=== PATIENT | male | born 1945 | race Caucasian/White ===

== ENCOUNTER 2022-10-10 13:52 | Outpatient (CLI) | payer MEDICARE, BC | END 2022-10-10 13:53 | disposition home or self-care (01) | LOC: TBSIIMAG 13:52 | PROVIDERS: ATTEND Surgery | DX: M50.30 Other cervical disc degeneration, unspecified cervical region (principal); M47.812 Spondylosis without myelopathy or radiculopathy, cervical region | CPT/HCPCS: 72050; 72141 ==

== ENCOUNTER 2022-12-12 12:22 | Outpatient (CLI) | payer MEDICARE, BC | END 2022-12-12 12:23 | disposition home or self-care (01) | LOC: TBSIIMAG 12:22 | PROVIDERS: ATTEND Surgery | DX: M47.24 Other spondylosis with radiculopathy, thoracic region (principal) | CPT/HCPCS: 72146 ==

== ENCOUNTER 2023-04-09 05:39 | Inpatient (IN) | payer MEDICARE, BC ==
[2023-04-06 16:30] VITALS: BMI 29.2
[2023-04-06 17:46] LABS: Hemoglobin 15.6 g/dL (13.5-17.5); Mean Corpuscular HGB CONC 31.8 g/dL (32.0-36.0); Mean Corpuscular Hemoglobin 30.2 pg (27.0-33.0); Mean Platelet Volume 10.3 fl (7.4-10.4); Platelet Count 145 10x3/uL (150-450); RBC Distribution Width 12.8 % (11.5-14.5); Red Blood Cell (RBC) Count 5.16 10x6/uL (4.32-5.72); White Blood Cell (WBC) Count 7.1 10x3/uL (3.5-10.5)
[2023-04-06 17:56] LABS: PTT 26.2 sec (22.0-33.0); Prothrombin Time 10.4 sec (9.5-12.1)
[2023-04-06 17:59] LABS: Anion Gap 11 mmol/L (10-20); BUN (Urea Nitrogen) 16 mg/dL (8.4-25.7); Calc. Creatinine Clearance 0 mL/min (70-130); Calcium 9.1 mg/dL (7.8-10.44); Carbon Dioxide 31 mmol/L (23-31); Chloride 102 mmol/L (98-107); Estimated GFR 90; Glucose 84 mg/dL (83-110); Potassium 4.5 mmol/L (3.5-5.1); Sodium 139 mmol/L (136-145)
[2023-04-09] MEDS ORDERED: Thrombin 5000 UNITS/5 ML VIAL ONE (06:33)
[2023-04-09] MEDS ORDERED: Vancomycin 1 GM VIAL ONE (06:33)
[2023-04-09] MEDS ORDERED: fentaNYL 50 mcg/mL 1 mL Vial ONE ×5 (07:05→11:35)
[2023-04-09] MEDS ORDERED: Famotidine/PF 20 mg/2ml Vial ONE (07:05)
[2023-04-09] MEDS ORDERED: Vasopressin 20 UNITS/ML VIAL ONE (07:05)
[2023-04-09] MEDS ORDERED: SUGAMMADEX SODIUM 200 MG/2 ML VIAL ONE (07:05)
[2023-04-09] MEDS ORDERED: Sodium Chloride 0.9% 100 ML ONE (07:18)
[2023-04-09] MEDS ORDERED: CEFAZOLIN 2 GM VIAL ONE (07:18)
[2023-04-09] MEDS ORDERED: Rocuronium Bromide 10 MG/ML (10ML VIAL) ONE (07:34)
[2023-04-09] MEDS ORDERED: PHENYLEPHRINE-NS 100 MCG/ML 10 ML SYRINGE ONE (07:34)
[2023-04-09] MEDS ORDERED: Dexamethasone 20 MG/5 ML VIAL ONE (07:34)
[2023-04-09] MEDS ORDERED: Ondansetron PF 4 MG/2 ML Vial ONE (07:34)
[2023-04-09] MEDS ORDERED: ePHEDrine Sulfate 50 MG/10 ML VIAL ONE (07:34)
[2023-04-09] MEDS ORDERED: Ketorolac Tromethamine 30 MG/ML VIAL ONE (07:34)
[2023-04-09] MEDS ORDERED: PROPOFOL 200 MG/20 ML VIAL ONE (07:34)
[2023-04-09] MEDS ORDERED: Lidocaine 1% PF 5 ML VIAL ONE (07:34)
[2023-04-09] MEDS ORDERED: Vancomycin 500 MG VIAL (PEDI) ONE (10:20)
[2023-04-09] MEDS ORDERED: Promethazine HCl 25 MG/ML VIAL IVPB PRN (11:06)
[2023-04-09] MEDS ORDERED: Ondansetron PF 4 MG/2 ML Vial IVP PRN ×2 (11:06→17:42)
[2023-04-09] MEDS ORDERED: diphenhydrAMINE 25 MG CAP PO PRN ×2 (11:06→17:42)
[2023-04-09] MEDS ORDERED: HYDROcodone/Acetaminophen 7.5/325 mg Tablet PO PRN (11:06)
[2023-04-09] MEDS ORDERED: HYDROcodone/Acetaminophen 10/325 mg Tablet PO PRN (11:06)
[2023-04-09] MEDS ORDERED: Bisacodyl 10 MG SUPP PR PRN (11:09)
[2023-04-09] MEDS ORDERED: Bisacodyl 5 MG TAB PO PRN (11:09)
[2023-04-09] MEDS ORDERED: Diazepam 5 MG TAB PO PRN ×2 (11:09→22:35)
[2023-04-09] MEDS ORDERED: Mineral Oil ENEMA PR PRN (11:09)
[2023-04-09] MEDS ORDERED: hydrALAZINE 20 MG/ML VIAL SLOW IVP PRN (11:09)
[2023-04-09] MEDS ORDERED: Promethazine HCl 12.5 MG in Sodium Chloride 0.9% 50 ML IVPB PRN (11:35)
[2023-04-09] MEDS ORDERED: HYDROmorphone 2 MG/ML VIAL ONE (11:52)
[2023-04-09] MEDS ORDERED: Ketorolac Tromethamine 30 MG/ML VIAL IVP SCH (12:00)
[2023-04-09] MEDS ORDERED: Acetaminophen 500 MG TAB ONE (12:16)
[2023-04-09] MEDS ORDERED: Diazepam 5 MG TAB ONE (13:27)
[2023-04-09] MEDS: Morphine 2 MG/ML VIAL SLOW IVP PRN ×3 (15:51→17:45)
[2023-04-09] MEDS: Acetaminophen 325 MG TAB PO PRN ×2 (15:54→21:23)
[2023-04-09] MEDS: CEFAZOLIN 2 GM in Sodium Chloride 0.9% 100 ML IVPB SCH ×2 (15:59→23:50)
[2023-04-09] MEDS: Sodium Chloride 0.9% 1,000 ML IV SCH (15:59)
[2023-04-09] MEDS ORDERED: hydrALAZINE 25 MG TAB PO SCH (17:30)
[2023-04-09] MEDS: Ketorolac Tromethamine 30 MG/ML VIAL IVP SCH ×2 (17:38→23:51)
[2023-04-09] MEDS ORDERED: Zolpidem Tartrate 5 MG TAB PO PRN (17:42)
[2023-04-09] MEDS ORDERED: diphenhydrAMINE 50 MG/ML VIAL IM PRN (17:42)
[2023-04-09] MEDS ORDERED: Promethazine HCl 25 MG/ML VIAL IM PRN (17:42)
[2023-04-09] MEDS ORDERED: FENTANYL 500 MCG/10 ML VIAL 2,000 MCG in Sodium Chloride 0.9% 60 ML IV PRN (17:42)
[2023-04-09] MEDS ORDERED: Naloxone HCl 0.4 mg/ml Vial IV PRN (17:42)
[2023-04-09] MEDS ORDERED: diphenhydrAMINE 50 MG/ML VIAL IVP PRN (17:42)
[2023-04-09] MEDS ORDERED: cloNIDine 0.1 MG TAB PO SCH ×2 (17:45→22:00)
[2023-04-09] MEDS ORDERED: Communication Order-Pharmacy FS SCH (17:45)
[2023-04-09] MEDS ORDERED: Fentanyl CADD 100 ML IVPB SCH (18:15)
[2023-04-09] MEDS ORDERED: tiZANidine HCl 4 MG TAB PO SCH (21:00)
[2023-04-09] MEDS ORDERED: Gabapentin 400 MG CAP PO SCH (21:00)
[2023-04-09] MEDS: Docusate 100 MG CAP PO SCH (21:22)
[2023-04-09] MEDS: GABAPENTIN 300MG PO SCH (21:24)
[2023-04-09] MEDS: CLONIDINE 0.1MG PO SCH (23:53)
[2023-04-09] MEDS: HYDRALAZINE 100 MG PO SCH (23:55)
[2023-04-10] MEDS: NEBIVOLOL 10 MG PO SCH ×4 (02:50→23:05)
[2023-04-10] MEDS: Sodium Chloride 0.9% 1,000 ML IV SCH ×2 (02:51→13:39)
[2023-04-10] MEDS: Acetaminophen 325 MG TAB PO PRN ×3 (03:12→21:43)
[2023-04-10] MEDS: Ketorolac Tromethamine 30 MG/ML VIAL IVP SCH ×2 (06:34→11:34)
[2023-04-10] MEDS: Levothyroxine Sodium 125 MCG TAB PO SCH (06:36)
[2023-04-10] MEDS ORDERED: Nebivolol HCl 5 MG TAB PO SCH (09:00)
[2023-04-10] MEDS ORDERED: hydrALAZINE 25 MG TAB PO SCH (09:00)
[2023-04-10 09:25] LABS: #Monocytes 1.5 thou/uL (0.11-0.59); #Neutrophils 12.5 thou/uL (1.40-6.50); %Basophils 0.2 % (0.0-1.0); %Eosinophils 0.3 % (0.0-10.0); %Lymphocytes 9.1 % (21.0-51.0); %Monocytes 9.5 % (0.0-10.0); %Neutrophils 80.4 % (42.0-75.0); Hemoglobin 13.7 g/dL (14.0-18.0); Mean Corpuscular HGB CONC 32.2 g/dL (32.0-36.0); Mean Corpuscular Hemoglobin 30.8 pg (27.0-31.0); Mean Corpuscular Volume 95.7 fl (78.0-98.0); Mean Platelet Volume 9.9 fL (7.4-10.4); Platelet Count 152 10x3/uL (130-400); RBC Distribution Width 12.8 % (11.5-14.5); Red Blood Cell (RBC) Count 4.45 mill/uL (4.70-6.10); White Blood Cell (WBC) Count 15.6 10x3/uL (4.8-10.8)
[2023-04-10] MEDS: Rosuvastatin 5 MG TAB PO SCH (09:28)
[2023-04-10] MEDS: Docusate 100 MG CAP PO SCH ×2 (09:28→21:42)
[2023-04-10] MEDS: Liothyronine Sodium 5 MCG TAB PO SCH (09:28)
[2023-04-10] MEDS: GABAPENTIN 300MG PO SCH ×3 (09:29→21:44)
[2023-04-10] MEDS: CLONIDINE 0.1MG PO SCH ×4 (09:30→23:04)
[2023-04-10] MEDS: HYDRALAZINE 100 MG PO SCH ×3 (09:31→23:05)
[2023-04-10 09:49] LABS: Anion Gap 11 mmol/L (10-20); BUN (Urea Nitrogen) 16 mg/dL (8.4-25.7); Calc. Creatinine Clearance 111 mL/min (70-130); Calcium 8.8 mg/dL (7.8-10.44); Carbon Dioxide 32 mmol/L (23-31); Chloride 98 mmol/L (98-107); Estimated GFR 92; Glucose 109 mg/dL (83-110); Potassium 4.5 mmol/L (3.5-5.1); Sodium 136 mmol/L (136-145)
[2023-04-10] MEDS: tiZANidine HCl 4 MG TAB PO PRN (13:44)
[2023-04-10] MEDS ORDERED: Benzocaine (Dental) 7 GM TUBE TOP PRN (13:48)
[2023-04-10] MEDS ORDERED: Fluticasone Propionate Nasal Spray 16 gm Bottle NASAL PRN (17:41)
[2023-04-10] MEDS ORDERED: Albuterol 200 PUFF (6.7GM INHALER) INH PRN (17:41)
[2023-04-10] MEDS ORDERED: Dorzolamide HCl 2% Ophth Soln 10 ml Bottle L EYE SCH (21:00)
[2023-04-10] MEDS: DorzolamidE/Timolol 2%/0.5% Ophth Soln 10 ml Bottle L EYE SCH (21:45)
[2023-04-10] MEDS: Brimonidine Tartrate 0.2% Ophth Soln 5 ml Bottle L EYE SCH (21:45)
[2023-04-10] MEDS: Latanoprost 0.005% Ophth Soln 2.5 ml Bottle EA EYE SCH (21:47)
[2023-04-10] MEDS: Ketorolac Tromethamine 30 MG/ML VIAL IVP PRN (23:16)
[2023-04-11] MEDS: Sodium Chloride 0.9% 1,000 ML IV SCH ×2 (02:29→16:50)
[2023-04-11] MEDS: Levothyroxine Sodium 125 MCG TAB PO SCH (05:05)
[2023-04-11] MEDS: Acetaminophen 325 MG TAB PO PRN (05:13)
[2023-04-11] MEDS: Ketorolac Tromethamine 30 MG/ML VIAL IVP PRN ×2 (05:19→19:50)
[2023-04-11] MEDS: Docusate 100 MG CAP PO SCH ×2 (08:34→21:35)
[2023-04-11] MEDS: Rosuvastatin 5 MG TAB PO SCH (08:34)
[2023-04-11] MEDS: HYDRALAZINE 100 MG PO SCH ×2 (08:35→15:09)
[2023-04-11] MEDS: GABAPENTIN 300MG PO SCH ×3 (08:35→21:36)
[2023-04-11] MEDS: NEBIVOLOL 10 MG PO SCH ×2 (08:35→15:10)
[2023-04-11] MEDS: CLONIDINE 0.1MG PO SCH ×2 (08:36→15:09)
[2023-04-11] MEDS: DorzolamidE/Timolol 2%/0.5% Ophth Soln 10 ml Bottle L EYE SCH (08:37)
[2023-04-11] MEDS: Brimonidine Tartrate 0.2% Ophth Soln 5 ml Bottle L EYE SCH ×2 (08:37→22:45)
[2023-04-11] MEDS: Liothyronine Sodium 5 MCG TAB PO SCH (11:01)
[2023-04-11] MEDS: HYDROcodone/Acetaminophen 7.5/325 mg Tablet PO PRN (11:01)
[2023-04-11] MEDS ORDERED: Fentanyl 100 MCG/2 ML VIAL SLOW IVP PRN (11:30)
[2023-04-11] MEDS ORDERED: NALOXONE HCL SL SCH (12:00)
[2023-04-11] MEDS ORDERED: BUPRENORPHINE HCL SL SCH (12:00)
[2023-04-11] MEDS: traMADol HCl 50 MG TAB PO PRN ×2 (15:07→22:54)
[2023-04-11] MEDS: tiZANidine HCl 4 MG TAB PO PRN (19:51)
[2023-04-11] MEDS ORDERED: Dexamethasone 4 MG TAB PO SCH (20:15)
[2023-04-11] MEDS: guaiFENesin/DM ER PO PRN (21:35)
[2023-04-11] MEDS: Dorzolamide HCl 2% Ophth Soln 10 ml Bottle L EYE SCH (22:45)
[2023-04-11] MEDS: Latanoprost 0.005% Ophth Soln 2.5 ml Bottle EA EYE SCH (22:45)
[2023-04-11] MEDS: Timolol 0.5% Ophth Soln 5 ml Bottle L EYE SCH (22:45)
[2023-04-12] MEDS: HYDRALAZINE 100 MG PO SCH ×4 (00:11→23:15)
[2023-04-12] MEDS: CLONIDINE 0.1MG PO SCH ×4 (00:12→23:16)
[2023-04-12] MEDS: NEBIVOLOL 10 MG PO SCH ×4 (00:13→23:15)
[2023-04-12] MEDS: Melatonin 3 MG TAB PO PRN ×2 (00:46→23:14)
[2023-04-12] MEDS: DorzolamidE/Timolol 2%/0.5% Ophth Soln 10 ml Bottle L EYE SCH (01:42)
[2023-04-12] MEDS: Levothyroxine Sodium 125 MCG TAB PO SCH (05:33)
[2023-04-12] MEDS: Liothyronine Sodium 5 MCG TAB PO SCH (05:33)
[2023-04-12] MEDS: traMADol HCl 50 MG TAB PO PRN ×2 (05:33→12:03)
[2023-04-12] MEDS: tiZANidine HCl 4 MG TAB PO PRN ×2 (05:34→20:21)
[2023-04-12] MEDS: Sodium Chloride 0.9% 1,000 ML IV SCH ×3 (06:48→23:18)
[2023-04-12] MEDS: GABAPENTIN 300MG PO SCH ×3 (08:30→20:22)
[2023-04-12] MEDS: Rosuvastatin 5 MG TAB PO SCH (08:31)
[2023-04-12] MEDS: Docusate 100 MG CAP PO SCH ×2 (08:31→20:16)
[2023-04-12] MEDS: HYDROcodone/Acetaminophen 7.5/325 mg Tablet PO PRN ×3 (08:31→20:21)
[2023-04-12] MEDS: Dorzolamide HCl 2% Ophth Soln 10 ml Bottle L EYE SCH ×2 (08:32→20:32)
[2023-04-12] MEDS: Brimonidine Tartrate 0.2% Ophth Soln 5 ml Bottle L EYE SCH ×2 (08:32→20:32)
[2023-04-12] MEDS: Timolol 0.5% Ophth Soln 5 ml Bottle L EYE SCH ×2 (08:34→20:32)
[2023-04-12] MEDS: Ketorolac Tromethamine 30 MG/ML VIAL IVP PRN (10:36)
[2023-04-12] MEDS ORDERED: Calcium Carbonate 500 MG ChewTAB PO PRN (18:58)
[2023-04-12] MEDS: Latanoprost 0.005% Ophth Soln 2.5 ml Bottle EA EYE SCH (20:32)
[2023-04-13] MEDS: Acetaminophen 325 MG TAB PO PRN (03:43)
[2023-04-13] MEDS: Levothyroxine Sodium 125 MCG TAB PO SCH (05:35)
[2023-04-13] MEDS: Liothyronine Sodium 5 MCG TAB PO SCH (05:35)
[2023-04-13] MEDS: tiZANidine HCl 4 MG TAB PO PRN (05:40)
[2023-04-13] MEDS: HYDROcodone/Acetaminophen 7.5/325 mg Tablet PO PRN (05:40)
[2023-04-13] MEDS: guaiFENesin/DM ER PO PRN (05:41)
[2023-04-13 06:23] LABS: #Eosinphils 0.4 thou/uL (0.0-0.7); #Neutrophils 7.9 thou/uL (1.40-6.50); %Basophils 0.3 % (0.0-1.0); %Eosinophils 3.4 % (0.0-10.0); %Lymphocytes 12.7 % (21.0-51.0); %Monocytes 9.6 % (0.0-10.0); %Neutrophils 73.3 % (42.0-75.0); Hemoglobin 13.8 g/dL (14.0-18.0); Mean Corpuscular HGB CONC 32.9 g/dL (32.0-36.0); Mean Corpuscular Hemoglobin 30.8 pg (27.0-31.0); Mean Corpuscular Volume 93.5 fl (78.0-98.0); Mean Platelet Volume 10.2 fL (7.4-10.4); Platelet Count 158 10x3/uL (130-400); Red Blood Cell (RBC) Count 4.48 mill/uL (4.70-6.10); White Blood Cell (WBC) Count 10.8 10x3/uL (4.8-10.8)
[2023-04-13] MEDS: Sodium Chloride 0.9% 1,000 ML IV SCH (06:33)
[2023-04-13 06:46] LABS: Anion Gap 10 mmol/L (10-20); BUN (Urea Nitrogen) 18 mg/dL (8.4-25.7); Calc. Creatinine Clearance 119 mL/min (70-130); Calcium 8.8 mg/dL (7.8-10.44); Carbon Dioxide 28 mmol/L (23-31); Chloride 102 mmol/L (98-107); Estimated GFR 94; Glucose 134 mg/dL (83-110); Potassium 3.9 mmol/L (3.5-5.1); Sodium 136 mmol/L (136-145)
[2023-04-13] MEDS ORDERED: Dexamethasone 10 MG/ML VIAL SLOW IVP SCH (09:00)
[2023-04-13] MEDS ORDERED: Mineral Oil ENEMA PR PRN (09:02)
[2023-04-13] MEDS: Docusate 100 MG CAP PO SCH (09:04)
[2023-04-13] MEDS: Rosuvastatin 5 MG TAB PO SCH (09:04)
[2023-04-13] MEDS: NEBIVOLOL 10 MG PO SCH (09:07)
[2023-04-13] MEDS: HYDRALAZINE 100 MG PO SCH (09:07)
[2023-04-13] MEDS: CLONIDINE 0.1MG PO SCH (09:08)
[2023-04-13] MEDS: GABAPENTIN 300MG PO SCH (09:09)
[2023-04-13] MEDS: Acetaminophen/Codeine 30-300mg Tablet PO PRN ×2 (09:10→14:49)
[2023-04-13] MEDS: Dorzolamide HCl 2% Ophth Soln 10 ml Bottle L EYE SCH (09:11)
[2023-04-13] MEDS: Brimonidine Tartrate 0.2% Ophth Soln 5 ml Bottle L EYE SCH (09:11)
[2023-04-13] MEDS ORDERED: Dexamethasone 10 MG/ML VIAL IM SCH (09:15)
[2023-04-13] MEDS: Milk Of Magnesia 30 ML UDCUP PO SCH ×2 (11:56→12:05)
[2023-04-13 12:14] VITALS: BP 114/61; TEMP 99.2
[2023-04-13] MEDS ORDERED: Dexamethasone 4 MG TAB PO SCH (16:00)
[2023-04-15] MEDS ORDERED: Dexamethasone 1 MG TAB PO SCH (16:00)
[2023-04-17] MEDS ORDERED: Dexamethasone 1 MG TAB PO SCH (16:00)
[2023-04-19] MEDS ORDERED: Dexamethasone 1 MG TAB PO SCH (16:00)
== END 2023-04-13 15:30 | DRG 519 ==
LOC: SDC 05:39 → SURG A 14:32 → OBSVTOIN 04-10 11:33
PROVIDERS: ADMIT Surgery; ATTEND Surgery
PROC: 00NX0ZZ Release Thoracic Spinal Cord, Open Approach (ICD-10-PCS; principal; 2023-04-09)
PROC: 01NB0ZZ Release Lumbar Nerve, Open Approach (ICD-10-PCS; 2023-04-09)
PROC: 01N80ZZ Release Thoracic Nerve, Open Approach (ICD-10-PCS; 2023-04-09)
PROC: 00NY0ZZ Release Lumbar Spinal Cord, Open Approach (ICD-10-PCS; 2023-04-09)
DX: M48.062 Spinal stenosis, lumbar region with neurogenic claudication (principal); F11.23 Opioid dependence with withdrawal; G99.2 Myelopathy in diseases classified elsewhere; E78.5 Hyperlipidemia, unspecified; I10 Essential (primary) hypertension; G89.29 Other chronic pain; E03.9 Hypothyroidism, unspecified; G62.9 Polyneuropathy, unspecified; F41.9 Anxiety disorder, unspecified; M48.05 Spinal stenosis, thoracolumbar region; Z79.82 Long term (current) use of aspirin; Z79.899 Other long term (current) drug therapy; Z98.890 Other specified postprocedural states
CPT/HCPCS: 36415; 80048; 85025; 85027; 85610; 85730; 86850; 86900; 86901; 93970; C1889; J1100; J1170; J1885; J2272; J2405; J2704; J3010; J3370; J3371; J3490; J7050; J8540; S0028